=== PATIENT | female | born 1955 | race Caucasian/White ===

== ENCOUNTER 2017-06-19 17:03 | Emergency (ER) | payer BC, OTHER ==
[~2017-06-19] VITALS: Ht 167.6 cm; Wt 102.5 kg
[~2017-06-19 17:03] MED LIST: ASPI-664 PO; CLOP75TA27 PO; FAMO-95 PO; LEVO125T75 PO; METO-448 PO; SIMV40TA3 PO; TRAM50TA2 PO; humalog; lantus
[2017-06-19 17:05] VITALS: Ht 167.6 cm; Wt 102.5 kg
[2017-06-19] MEDS ORDERED: LACTATED RINGER'S 1,000 ML IV ONE ×2 (17:30)
[2017-06-19] MEDS ORDERED: KETOROLAC 30 MG INJ IV STA (17:42)
[2017-06-19] MEDS ORDERED: LANT3I SC (17:47)
[2017-06-19] MEDS ORDERED: SIMV40TA2 PO (17:48)
[2017-06-19] MEDS ORDERED: METF500T4 PO (17:48)
[2017-06-19] MEDS ORDERED: METO-448 PO (17:49)
[2017-06-19] MEDS ORDERED: NOVO3I SC (17:49)
[2017-06-19] MEDS ORDERED: LEVO137T26 PO (17:49)
--- NOTE | 2017-06-19 18:00 | RADRPT ---
PROCEDURE: XR Chest. CLINICAL INDICATION: Sepsis . TECHNIQUE: Single frontal chest x-ray. COMPARISON: 03/15/2014 FINDINGS: The lungs are clear of acute infiltrates, edema, effusions, or masses. There is elevation of the rig ht hemidiaphragm.. The cardiomediastinal silhouette is unremarkable. The osseous structures are int act. IMPRESSION: No acute cardiopulmonary disease. RPTAT: QQ .Samson Davis MD, MD Date Time Electronically viewed and signed by .Samson Davis MD, on 06/19/2017 18:00 .L/
--- NOTE | 2017-06-19 18:14 | ERD ---
ER Documentation Chief Complaint Chief Complaint fever, body aches, cough & congestion x1 day HPI 61-year-old female presents with chills, cough, generalized weakness, body aches and headache going on for the last 2 days. She has chest pain when she coughs. She denies nausea or vomiting. Does have a history of myocardial infarction and multiple stents. She is a diabetic on Lantus and NovoLog insulin. ROS All systems reviewed and are negative except as per history of present illness. Medications Home Meds Active Scripts Albuterol Sulfate* (Ventolin HFA*) 18 Gm Hfa.aer.ad, 2 PUFF INHALATION Q4H, #1 INHALER Prov:JAIME CORRALES DO 06/19/17 Azithromycin* (Zithromax*) 250 Mg Tablet, 250 MG PO .AlmaPACK DIRECTED, #6 TAB TAKE 500 MG (2 TABS) THE FIRST DAY THEN 250 MG (1 TAB) DAYS 2-5 Prov:JAIME CORRALES DO 06/19/17 Hydrocodone/Acetaminophen (Effie 5-325 Tablet) 1 Each Tablet, 1 EACH PO Q6, #20 TAB Prov:JAIME CORRALES DO 06/19/17 Naproxen* (Naproxen*) 500 Mg Tablet, 500 MG PO BID Y for PAIN, #20 TAB Prov:JAIME CORRALES DO 06/19/17 Reported Medications Levothyroxine Sodium* (Levoxyl*) 137 Mcg Tablet, 137 MCG PO BEFORE BREAKFAST, # 30 TAB 06/19/17 Metoprolol Tartrate* (Lopressor*) 25 Mg Tab, 25 MG PO BID, #60 TAB 06/19/17 Insulin Aspart* (Novolog Insulin Pen*) 100 Unit/Ml Soln, 10 UNIT SC AC MEALS, EA 06/19/17 Simvastatin* (Zocor*) 40 Mg Tablet, 40 MG PO QHS, #30 TAB 06/19/17 Metformin Hcl* (Metformin Hcl*) 500 Mg Tablet, 500 MG PO WITH BREAKFAST DINNE, # 30 TAB 06/19/17 Insulin Glargine* (Lantus*) 100 Unit/Ml Soln, 34 UNIT SC QHS, #1 VIAL 06/19/17 Aspirin* (Aspirin* EC) 81 Mg Tablet.dr, 81 MG PO DAILY, TAB 03/15/14 Discontinued Reported Medications [humalog] No Conflict Check, TID 03/15/14 [lantus] No Conflict Check, 27 HS 03/15/14 Simvastatin (Simvastatin) 40 Mg Tablet, 40 MG PO DAILY, TAB 03/15/14 Clopidogrel Bisulfate (Clopidogrel) 75 Mg Tablet, 75 MG PO DAILY, TAB 03/15/14 Levothyroxine Sodium* (Levothyroxine Sodium*) 125 Mcg Tablet, 125 MCG PO DAILY, TAB 03/15/14 Metoprolol Tartrate* (Lopressor*) 25 Mg Tab, 25 MG PO BID, TAB 03/15/14 Discontinued Scripts Tramadol HCl (Tramadol HCl) 50 Mg Tab, 50 MG PO BID for PAIN, #30 TAB Prov:OLGA GARLAND MD 03/16/14 Famotidine* (Pepcid* AC) 20 Mg Tab, 20 MG PO BID for GASTROINTESTINAL UPSET, # 60 MG Prov:OLGA GARLAND MD 03/16/14 Allergies Allergies: Coded Allergies: phenobarbital (Verified Adverse Reaction, Unknown, FROM CHILDHOOD, ) PMhx/Soc History of Surgery: Yes (angiogram with stent, hysterectomy) Anesthesia Reaction: No Hx Neurological Disorder: No Hx Respiratory Disorders: No Hx Cardiac Disorders: Yes (myocardaic infarction, CAD, hyperlipidemia) Hx Psychiatric Problems: No Hx Miscellaneous Medical Probl: No Hx Alcohol Use: No Hx Substance Use: No Hx Tobacco Use: No Physical Exam Vitals Vital Signs Date Time Temp Pulse Resp B/P Pulse Ox O2 Delivery O2 Flow Rate FiO2 06/19/17 23:05 87 18 134/81 100 Room Air 06/19/17 22:00 97 18 134/93 97 Room Air 06/19/17 20:00 88 20 139/78 98 Room Air 06/19/17 18:30 99.3 109 20 138/78 97 Room Air 06/19/17 17:05 99.3 123 18 141/90 94 Physical Exam Const: [] Moderate distress Head: Atraumatic Eyes: Normal Conjunctiva, EOMI, PERRLA ENT: Normal External Ears, Nose and Mouth. Oropharynx within normal limits. Neck: Full range of motion..~No JVD, no meningismus Resp: Mild decreased bibasilar breath sounds, coughs on deep inspiration Cardio: Regular tachycardia, no murmurs Abd: Soft, non tender, non distended. Normal bowel sounds Skin: No petechiae or rashes Ext: No cyanosis, or edema Neur: Awake and alert and oriented 3. No focal deficit Psych: Normal Mood and Affect Result Diagram: 06/19/17181606/19/171816 Results 24 hrs Laboratory Tests Test 06/19/17 18:17 06/19/17 18:45 06/19/17 20:53 White Blood Count 4.610^3/ul Red Blood Count 4.4610^6/ul Hemoglobin 12.9g/dl Hematocrit 37.6% Mean Corpuscular Volume 84.3fl Mean Corpuscular Hemoglobin 28.9pg Mean Corpuscular Hemoglobin Concent 34.3g/dl Red Cell Distribution Width 14.0% Platelet Count 78436^3/UL Mean Platelet Volume 11.1fl Neutrophils % 59.6% Lymphocytes % 24.6% Monocytes % 8.6% Eosinophils % 6.6% Basophils % 0.4% Nucleated Red Blood Cells % 0.0/100WBC Neutrophils # 2.710^3/ul Lymphocytes # 1.110^3/ul Monocytes # 0.410^3/ul Eosinophils # 0.310^3/ul Basophils # 0.010^3/ul Nucleated Red Blood Cells # 0.010^3/ul Prothrombin Time 12.9Sec Prothrombin Time Ratio 1.0 INR International Normalized Ratio 0.97 Activated Partial Thromboplast Time 29.3Sec Sodium Level 140mmol/L Potassium Level 3.8mmol/L Chloride Level 104mmol/L Carbon Dioxide Level 25mmol/L Anion Gap 15 Blood Urea Nitrogen 14mg/dl Creatinine 1.13mg/dl Glucose Level 250mg/dl Lactic Acid Level 1.5mmol/L 0.9mmol/L Calcium Level 9.3mg/dl Total Bilirubin 0.7mg/dl Direct Bilirubin 0.00mg/dl Indirect Bilirubin 0.7mg/dl Aspartate Amino Transf (AST/SGOT) 23IU/L Alanine Aminotransferase (ALT/SGPT) 42IU/L Alkaline Phosphatase 109IU/L Troponin I < 0.012ng/ml Total Protein 6.8g/dl Albumin 3.8g/dl Globulin 3.00g/dl Albumin/Globulin Ratio 1.26 Urine Color YELLOW Urine Clarity CLEAR Urine pH 5.0 Urine Specific [place] 1.012 Urine Ketones NEGATIVEmg/dL Urine Nitrite NEGATIVEmg/dL Urine Bilirubin NEGATIVEmg/dL Urine Urobilinogen 1+mg/dL Urine Leukocyte Esterase NEGATIVELeu/ul Urine Hemoglobin NEGATIVEmg/dL Urine Glucose 3+mg/dL Urine Total Protein NEGATIVEmg/dl Current Medications Medications (Trade) Dose Ordered Sig/Ashley Route PRN Reason Start Time Stop Time Status Last Admin Dose Admin Lactated Ringer's 1,000 ml @ 1,000 mls/hr Q1H ONCE IV 06/19/17 17:30 06/19/17 18:29 DC 06/19/17 19:00 Lactated Ringer's (Lr) 1,000 ml @ 1,000 mls/hr Q1H ONCE IV 06/19/17 17:30 06/19/17 18:29 DC 06/19/17 19:00 Ketorolac Tromethamine (Toradol) 30 mg ONCE STAT IV 06/19/17 17:42 06/19/17 17:43 DC 06/19/17 18:59 Procedures/MDM The viral upper respiratory infection with bronchitis in 61-year-old female. CBC does indicate possible viral suppression. No elevation of white blood cell count no evidence of wanda pneumonia on chest x-ray. Patient is a insulin- dependent diabetic, and also discharge with azithromycin. Initial septic workup was performed in the emergency room with cultures and IV fluids which did decrease the patient's heart rate. She is also given Toradol injection she felt much better. She still has some cough I am going to discharge her with Effie as well as naproxen and albuterol inhaler as needed. No signs of acute cardiac ischemia and I have low suspicion for pulmonary embolism considering the other symptoms of viral infection including body aches and having no risk factors for PE. She does agree to return to emergency room immediately if she has any increase of her symptoms or concerning changes. Primary care follow-up in the next 2 days. Reticulocyte monitor interpretation: Sinus tachycardia followed by normal sinus rhythm. No arrhythmias Chest x-ray interpretation: I see no acute process. I see no widened mediastinum, no pulmonary edema, pneumothorax, no infiltrates, no fractures. EKG interpretation: Sinus tachycardia rate of 112, right axis deviation, no ST or T-wave changes concerning for acute ischemia. Normal intervals. Nonspecific ST abnormality. Abnormal EKG Departure Diagnosis: Primary Impression: Acute bronchitis Additional Impressions: Viral URI Hyperglycemia due to type 2 diabetes mellitus Renal insufficiency Condition: JAIME Fernandes DO Jun 19, 2017 18:14
[2017-06-19 18:29] LABS: BASOPHILS % 0.4 % (0.0-2.0); EOSINOPHILS # 0.3 10^3/ul (0.0-0.5); EOSINOPHILS % 6.6 % (0.0-7.0); HEMATOCRIT 37.6 % (37.0-47.0); HEMOGLOBIN 12.9 g/dl (12.0-16.0); LYMPHOCYTES # 1.1 10^3/ul (0.8-2.9); LYMPHOCYTES % 24.6 % (15.0-51.0); MEAN CORPUSCULAR HEMOGLOBIN 28.9 pg (29.0-33.0); MEAN CORPUSCULAR HGB CONC 34.3 g/dl (32.0-37.0); MEAN CORPUSCULAR VOLUME 84.3 fl (82.0-101.0); MEAN PLATELET VOLUME 11.1 fl (7.4-10.4); MONOCYTE # 0.4 10^3/ul (0.3-0.9); MONOCYTES % 8.6 % (0.0-11.0); NEUTROPHIL # 2.7 10^3/ul (1.6-7.5); NEUTROPHILS % 59.6 % (39.0-77.0); PLATELET COUNT 158 10^3/UL (140-415); RED BLOOD COUNT 4.46 10^6/ul (4.20-5.40); WHITE BLOOD COUNT 4.6 10^3/ul (4.8-10.8)
[2017-06-19 18:30] VITALS: TEMP 99.3
[2017-06-19 18:44] LABS: INR 0.97; PROTIME 12.9 Sec (12.2-14.2)
[2017-06-19 18:45] LABS: PARTIAL THROMBOPLASTIN TIME 29.3 Sec (25.0-35.0)
[2017-06-19 18:48] LABS: ALANINE AMINOTRANSFERASE 42 IU/L (13-69); ALBUMIN 3.8 g/dl (3.3-4.9); ALBUMIN/GLOBULIN RATIO 1.26; ALKALINE PHOSPHATASE 109 IU/L (42-121); ANION GAP 15 (8-16); ASPARTATE AMINO TRANSFERASE 23 IU/L (15-46); BILIRUBIN,INDIRECT 0.7 mg/dl (0-1.1); BILIRUBIN,TOTAL 0.7 mg/dl (0.2-1.3); BLOOD UREA NITROGEN 14 mg/dl (7-20); CALCIUM 9.3 mg/dl (8.4-10.2); CARBON DIOXIDE 25 mmol/L (21-31); CHLORIDE 104 mmol/L (97-110); CREATININE 1.13 mg/dl (0.44-1.00); GLUCOSE 250 mg/dl (70-220); POTASSIUM 3.8 mmol/L (3.5-5.1); SODIUM 140 mmol/L (135-144); TOTAL PROTEIN 6.8 g/dl (6.1-8.1)
[2017-06-19 18:59] LABS: ADD UMIC NO; UR ASCORBIC ACID NEGATIVE (NEGATIVE); UR BILIRUBIN (Dip) NEGATIVE (NEGATIVE); UR BLOOD (Dip) NEGATIVE (NEGATIVE); UR CLARITY CLEAR (CLEAR); UR COLOR YELLOW (YELLOW); UR GLUCOSE (Dip) 3+ mg/dL (NEGATIVE); UR KETONES (Dip) NEGATIVE (NEGATIVE); UR LEUKOCYTE ESTERASE (Dip) NEGATIVE Leu/ul (NEGATIVE); UR NITRITE (Dip) NEGATIVE (NEGATIVE); UR SPECIFIC GRAVITY (Dip) 1.012 (1.003-1.030); UR TOTAL PROTEIN (Dip) NEGATIVE (NEGATIVE); UR UROBILINOGEN (Dip) 1+ mg/dL (NEGATIVE)
[2017-06-19 19:01] LABS: TROPONIN-I < 0.012 ng/ml (0.00-0.12)
[2017-06-19 23:05] VITALS: BP 134/81; PULSE 87; RESP 18
[2017-06-19] MEDS ORDERED: HYDR-906 PO (23:14)
[2017-06-19] MEDS ORDERED: AZIT250T94 PO (23:14)
[2017-06-19] MEDS ORDERED: ALBU18HF INHALATION (23:14)
[2017-06-19] MEDS ORDERED: NAPR-688 PO (23:14)
== END 2017-06-19 23:30 | disposition home or self-care (01) ==
LOC: E/R 17:03
DX: J20.9 Acute bronchitis, unspecified (principal); J06.9 Acute upper respiratory infection, unspecified; E11.65 Type 2 diabetes mellitus with hyperglycemia; N28.9 Disorder of kidney and ureter, unspecified; I25.10 Atherosclerotic heart disease of native coronary artery without angina pectoris; Z98.61 Coronary angioplasty status; Z79.84 Long term (current) use of oral hypoglycemic drugs; Z79.4 Long term (current) use of insulin; Z79.01 Long term (current) use of anticoagulants; Z79.82 Long term (current) use of aspirin
CPT/HCPCS: 71010; 80053; 81003; 83605; 84484; 85025; 85610; 85730; 87040; 87086; 87400; 93005; 96374; 99285; J1885; J7120